=== PATIENT | female | born 1930 | race American Indian/Alaskan Native ===

== ENCOUNTER 2017-07-16 15:34 | Emergency (ER) | payer MEDICARE ==
[2017-07-16 17:32] LABS: Basophils # (Auto) 0.1 K/mm3 (0.0-0.1); Basophils % (Auto) 1.1 % (0.0-1.8); Eosinophils # (Auto) 0.5 K/mm3 (0.0-0.4); Eosinophils % (Auto) 5.4 % (0.0-4.3); Hematocrit 38.8 % (30.3-42.9); Hemoglobin 12.7 gm/dl (10.1-14.3); Lymphocytes # (Auto) 2.4 K/mm3 (1.2-5.4); Lymphocytes % (Auto) 25.2 % (13.4-35.0); Mean Corpuscular HGB Conc 33 % (30-34); Mean Corpuscular Hemoglobin 28 pg (28-32); Mean Corpuscular Volume 87 fl (79-97); Monocytes # (Auto) 0.7 K/mm3 (0.0-0.8); Monocytes % (Auto) 7.2 % (0.0-7.3); Platelet Count 325 K/mm3 (140-440); Red Blood Count 4.48 M/mm3 (3.65-5.03); Red Cell Distribution Width 16.5 % (13.2-15.2)
[2017-07-16 17:57] LABS: Alanine Aminotransferase 23 units/L (7-56); Albumin 3.3 g/dL (3.9-5); BUN/Creatinine Ratio 20; Blood Urea Nitrogen 10 mg/dL (7-17); Calcium 9.4 mg/dL (8.4-10.2); Hemolysis Index 19
[2017-07-16] MEDS ORDERED: NACL 0.9% 1000 ML 1,000 ML IV ONE (18:45)
--- NOTE | 2017-07-16 18:51 | Emergency Department Report ---
ED N/V/D HPI - General Chief complaint: Nausea/Vomiting/Diarrhea Stated complaint: PERSISTENT DIARRHEA Time Seen by Provider: 07/16/17 18:10 Source: family, EMS Mode of arrival: Stretcher Limitations: Altered Mental Status - History of Present Illness Initial comments: History is per the patient's daughter. This is due to the patient's dementia. Patient had been having diarrhea for the past 2 weeks. She was in [facility] on the of this month. She was discharged from the emergency room with a diagnosis of diarrhea. Mother said that the stool samples that were done was otherwise negative. Before discharge she was given 1 dose of IV Levaquin. She says she had some oral Levaquin at home so gave the mother some of that. She was however not discharged on any Levaquin. When the daughter called [facility] to request oral levaquin they said she had to come in as a new patient to be seen before she could be given a prescription of Levaquin and so she decided to come to this emergency room. After completing about 3 days of Levaquin which she had patient's diarrhea restarted again and is continued. The nurses that the patient does complain of some abdominal pain in the suprapubic area. No nausea or vomiting. No fever. MD complaint: diarrhea, abdominal pain - Related Data Home Medications Medication Instructions Recorded Confirmed Last Taken Insulin Glargine,Hum.rec.anlog 4 - 6 units SUB-Q BID 03/13/13 07/16/17 05/02/17 [Lantus Solostar] Benzonatate [Tessalon Perle] 100 mg PO PRN PRN 07/16/17 07/16/17 Unknown Diclofenac Sodium [Voltaren] 1 gm TP DAILY PRN 07/16/17 07/16/17 Unknown Diltiazem HCl [Cardizem LA] 120 mg PO QDAY 07/16/17 07/16/17 Unknown Multivitamin Tab [Multiple Vitamin 1 each PO QDAY 07/16/17 07/16/17 Unknown TAB (Theragran)] clonazePAM [Klonopin] 0.5 mg PO QDAY PRN 07/16/17 07/16/17 Unknown Previous Rx's Medication Instructions Recorded Last Taken Type Calcium Carbonate [Tums] 1,000 mg PO Q4H PRN tablet 05/07/17 Unknown Rx Levothyroxine [Synthroid] 75 mcg PO QAM 30 Days tablet 05/07/17 Unknown Rx Levofloxacin [Levaquin TAB] 500 mg PO QDAY #10 tablet 07/16/17 Unknown Rx metroNIDAZOLE [Flagyl] 500 mg PO Q8HR 10 Days tablet 07/16/17 Unknown Rx Allergies Allergy/AdvReac Type Severity Reaction Status Date / Time codeine Allergy Rash Verified 05/03/17 05:25 ketorolac tromethamine Allergy Rash Verified 05/03/17 05:25 [From Toradol] Penicillins Allergy Rash Verified 05/03/17 05:25 ED Review of Systems ROS: Stated complaint: PERSISTENT DIARRHEA Other details as noted in HPI Comment: All other systems reviewed and negative ED Past Medical Hx - Past Medical History Previous Medical History?: Yes Hx Hypertension: Yes Hx Diabetes: Yes Hx Deep Vein Thrombosis: Yes Hx GERD: Yes Hx Dementia: Yes Hx HIV: No Additional medical history: H-pylori. diverticulosis. thyroid. Hemorrhoids - Surgical History Past Surgical History?: Yes Additional Surgical History: bladder tack. partial hysterectomy - Social History Smoking Status: Never Smoker Substance Use Type: None - Medications Home Medications: Home Medications Medication Instructions Recorded Confirmed Last Taken Type Insulin Glargine,Hum.rec.anlog 4 - 6 units SUB-Q BID 03/13/13 07/16/17 05/02/17 History [Lantus Solostar] Calcium Carbonate [Tums] 1,000 mg PO Q4H PRN tablet 05/07/17 07/16/17 Unknown Rx Levothyroxine [Synthroid] 75 mcg PO QAM 30 Days tablet 05/07/17 07/16/17 Unknown Rx Benzonatate [Tessalon Perle] 100 mg PO PRN PRN 07/16/17 07/16/17 Unknown History Diclofenac Sodium [Voltaren] 1 gm TP DAILY PRN 07/16/17 07/16/17 Unknown History Diltiazem HCl [Cardizem LA] 120 mg PO QDAY 07/16/17 07/16/17 Unknown History Levofloxacin [Levaquin TAB] 500 mg PO QDAY #10 tablet 07/16/17 Unknown Rx Multivitamin Tab [Multiple Vitamin 1 each PO QDAY 07/16/17 07/16/17 Unknown History TAB (Theragran)] clonazePAM [Klonopin] 0.5 mg PO QDAY PRN 07/16/17 07/16/17 Unknown History metroNIDAZOLE [Flagyl] 500 mg PO Q8HR 10 Days tablet 07/16/17 Unknown Rx ED Physical Exam - General Limitations: Altered Mental Status General appearance: alert, in no apparent distress - Head Head exam: Present: atraumatic, normocephalic - Eye Eye exam: Present: normal appearance. Absent: PERRL - ENT ENT exam: Present: mucous membranes moist - Neck Neck exam: Present: normal inspection. Absent: tenderness - Respiratory Respiratory exam: Present: normal lung sounds bilaterally. Absent: respiratory distress - Cardiovascular Cardiovascular Exam: Present: regular rate, normal rhythm. Absent: systolic murmur, diastolic murmur, rubs, gallop - GI/Abdominal GI/Abdominal exam: Present: soft, normal bowel sounds - Rectal Rectal exam: Present: deferred - Extremities Exam Extremities exam: Present: normal inspection - Back Exam Back exam: Present: normal inspection, full ROM - Neurological Exam Neurological exam: Present: alert, oriented X3 - Psychiatric Psychiatric exam: Present: normal affect, normal mood - Skin Skin exam: Present: warm, dry, intact, normal color. Absent: rash ED Course Vital Signs 07/16/17 07/16/17 07/16/17 16:34 16:58 18:00 Temperature 97.3 F L Pulse Rate 88 88 Respiratory 18 Rate Blood Pressure 140/80 Blood Pressure 142/88 [Left] O2 Sat by Pulse 85 92 Oximetry 07/16/17 19:30 Temperature 98.1 F Pulse Rate 104 H Respiratory 17 Rate Blood Pressure Blood Pressure 157/101 [Left] O2 Sat by Pulse 96 Oximetry ED Medical Decision Making - Lab Data Result diagrams: 07/16/17 17:24 07/16/17 17:24 - Radiology Data Radiology results: report reviewed - Medical Decision Making I did give the patient's information from [facility]. The patient was treated empirically for diverticulitis because the CT of the abdomen and pelvis that was done was without contrast and the physician despite talking to the family about wanting to do IV contrast they refused. The CT abdomen and pelvis without contrast did not show any diverticulitis only showed diverticulosis. I have talked to the patient's daughter I will give the patient Levaquin and Flagyl and she is in agreement with this. The family still do not want contrast Critical care attestation.: If time is entered above; I have spent that time in minutes in the direct care of this critically ill patient, excluding procedure time. ED Disposition Clinical Impression: Diarrhea, UTI (urinary tract infection) Disposition: TO HOME OR SELFCARE Is pt being admited?: No Does the pt Need Aspirin: No Condition: Stable Instructions: Urinary Tract Infection in Women (ED), Acute Diarrhea (ED) Prescriptions: Levofloxacin [Levaquin TAB] 500 mg PO QDAY #10 tablet metroNIDAZOLE [Flagyl] 500 mg PO Q8HR 10 Days tablet Referrals: PRIMARY CARE, [Primary Care Provider] - 3-5 Days Time of Disposition: 21:55 Print Language: WELSH
[2017-07-16 19:15] LABS: Bilirubin,Urine NEG (Negative); Blood,Urine MOD (Negative); Color,Urine Yellow (Yellow); Mucus,Urine FEW /HPF; Nitrite,Urine POS (Negative); Protein,Urine <15 mg/dL mg/dL (Negative); Urobilinogen,Urine < 2.0 mg/dL (<2.0)
[2017-07-16] MEDS ORDERED: LEVAQUIN PO ONE (19:38)
--- NOTE | 2017-07-16 20:38 | XRay Report ---
FINAL REPORT EXAM: XR CHEST 1V AP HISTORY: SOB TECHNIQUE: AP portable view of the chest PRIORS: CXR 05/03/2017 FINDINGS: Lines, tubes, and devices: N/A Lungs and pleura: Trachea is normal in position. Lungs are clear of infiltrate, pleural effusion, vascular congestion, or pneumothorax. No change. Cardiomediastinal silhouette: Cardiac and mediastinal silhouettes are unchanged. The aorta is tortuous and unfolded with calcification of the arch, overall unchanged. Other: Bony structures are intact. IMPRESSION: No acute cardiopulmonary process seen. No change.
[2017-07-16] MEDS ORDERED: FLAGYL PO ONE (21:32)
[2017-07-17 01:23] VITALS: BP 151/96
== END 2017-07-17 02:00 | disposition home or self-care (01) ==
LOC: ED 15:34
DX: R19.7 Diarrhea, unspecified (principal); N39.0 Urinary tract infection, site not specified; I10 Essential (primary) hypertension; E11.9 Type 2 diabetes mellitus without complications; I82.409 Acute embolism and thrombosis of unspecified deep veins of unspecified lower extremity; F03.90 Unspecified dementia, unspecified severity, without behavioral disturbance, psychotic disturbance, mood disturbance, and anxiety; K57.90 Diverticulosis of intestine, part unspecified, without perforation or abscess without bleeding; Z88.0 Allergy status to penicillin; Z88.8 Allergy status to other drugs, medicaments and biological substances
CPT/HCPCS: 36415; 71045; 80053; 81001; 85025; 96360; 99284; J7030